=== PATIENT | male | born 1975 | race Caucasian/White ===

== ENCOUNTER 2016-09-09 13:29 | Emergency (ER) | payer OTHER ==
[2016-09-09 13:38] VITALS: BP 156/96
--- NOTE | 2016-09-09 13:54 | ER Document Report ---
ED Medical Screen (RME) - General Stated Complaint: WC/FALL/ELBOW PAIN Time seen by provider: 13:53 Mode of Arrival: Ambulatory Information source: Patient Notes: 41-year-old male slipped and fell while taking the trash out Thursday. Fell on his chest and left elbow. Tetanus is current. There is a small abrasion in the is able to extend fully pronation and supination but he wants it checked out because it still hurts. Physical Exam - Vital signs Vitals: Temp Pulse Resp BP Pulse Ox 98.2 F 81 18 156/96 H 96 09/09/16 13:37 09/09/16 13:37 09/09/16 13:37 09/09/16 13:37 09/09/16 13:37 Course - Vital Signs Vital signs: Temp Pulse Resp BP Pulse Ox 98.2 F 81 18 156/96 H 96 09/09/16 13:37 09/09/16 13:37 09/09/16 13:37 09/09/16 13:37 09/09/16 13:37
--- NOTE | 2016-09-09 14:53 | ER Document Report ---
ED Extremity Problem, Upper - General Chief Complaint: Elbow Injury Stated Complaint: WC/FALL/ELBOW PAIN Mode of Arrival: Ambulatory Notes: The patient is a 41-year-old male who presents after he slipped on ice at work 2 days ago and hit his left elbow. It is still swollen and sore. He also landed on his anterior chest wall, but he is not having any chest wall pain. He has not taken anything to help. Tetanus is up-to-date. Denies numbness, tingling, chest pain, shortness of breath, neck pain, LOC or headache. TRAVEL OUTSIDE OF THE [place] IN LAST 30 DAYS: No - Related Data Allergies/Adverse Reactions: No Known Allergies Allergy (Verified 09/09/16 13:53) Past Medical History - General Information source: Patient - Social History Smoking Status: Never Smoker Family History: Reviewed & Not Pertinent Patient has suicidal ideation: No Patient has homicidal ideation: No Review of Systems - Review of Systems Notes: REVIEW OF SYSTEMS: CONSTITUTIONAL: -fevers, -chills EENT: -eye pain, -difficulty swallowing, -nasal congestion CARDIOVASCULAR:-chest pain, -syncope. RESPIRATORY: -cough, -SOB GASTROINTESTINAL: -abdominal pain, - nausea, -vomiting, -diarrhea GENITOURINARY: -dysuria, -hematuria MUSCULOSKELETAL: -back pain, -neck pain, +left elbow pain SKIN: -rash or skin lesions. HEMATOLOGIC: -easy bruising or bleeding. LYMPHATIC: -swollen, enlarged glands. NEUROLOGICAL: -altered mental status or loss of consciousness, -headache, - neurologic symptoms PSYCHIATRIC: -anxiety, -depression. ALL OTHER SYSTEMS REVIEWED AND NEGATIVE. Physical Exam - Vital signs Vitals: Temp Pulse Resp BP Pulse Ox 98.2 F 81 18 156/96 H 96 09/09/16 13:37 09/09/16 13:37 09/09/16 13:37 09/09/16 13:37 09/09/16 13:37 - Notes Notes: PHYSICAL EXAMINATION: GENERAL: Well-appearing, well-nourished and in no acute distress. HEAD: Atraumatic, normocephalic. EYES: Pupils equal round and reactive to light, extraocular movements intact, sclera anicteric, conjunctiva are normal. ENT: nares patent, oropharynx clear without exudates. Moist mucous membranes. NECK: Normal range of motion, supple without lymphadenopathy LUNGS: Breath sounds clear to auscultation bilaterally and equal. No wheezes rales or rhonchi. HEART: Regular rate and rhythm without murmurs ABDOMEN: Soft, nontender, normoactive bowel sounds. No guarding, no rebound. No masses appreciated. EXTREMITIES: Normal range of motion, no pitting or edema. No cyanosis. Nontender elbow. NEUROLOGICAL: Cranial nerves grossly intact. Normal speech, normal gait. Normal sensory, motor, and reflex exams. PSYCH: Normal mood, normal affect. SKIN: Warm, Dry, normal turgor, no rashes or lesions noted. Small superficial abrasion over left elbow. Course - Re-evaluation Re-evalutation: No acute findings on elbow x-ray. Tetanus up-to-date. Instructed him to continue Motrin and bacitracin for his small abrasion. - Vital Signs Vital signs: Temp Pulse Resp BP Pulse Ox 98.2 F 81 18 156/96 H 96 09/09/16 13:37 09/09/16 13:37 09/09/16 13:37 09/09/16 13:37 09/09/16 13:37 - Diagnostic Test Radiology reviewed: Image reviewed, Reports reviewed Radiology results interpreted by me: Negative left elbow x-ray. Discharge - Discharge Clinical Impression: Abrasion Left elbow contusion Qualifiers: Encounter type: initial encounter Qualified Code(s): S50.02XA - Contusion of left elbow, initial encounter Condition: Good Disposition: HOME, SELF-CARE Additional Instructions: Contusion Your injury has resulted in a contusion -- a crushing of the deep tissues. No injury to important structures was detected during the physician's exam. Contusions vary in the amount of pain they cause, and in the length of time required for healing. Typically, the area will become bruised, and will remain painful to touch for two or three weeks. However, most patients are back to working and playing within a few days. After the initial period of rest and cold-packs, your symptoms (together with the doctor's recommendations) will determine how rapidly you can get back to full activity. Usually this means "do what feels okay, but don't do things that hurt." If re-examination was recommended, it's important to follow up as instructed. Call the doctor or return any time if pain increases, if swelling becomes severe, if you develop numbness or weakness in an injured extremity, or if any other alarming symptoms occur. Forms: Elevated Blood Pressure
== END 2016-09-09 15:05 | disposition home or self-care (01) ==
LOC: ER 13:29
DX: S50.02XA Contusion of left elbow, initial encounter (principal); W00.0XXA Fall on same level due to ice and snow, initial encounter; Y99.0 Civilian activity done for income or pay
CPT/HCPCS: 99283

== ENCOUNTER 2020-04-20 16:27 | Inpatient (IN) | payer OTHER ==
--- NOTE | 2020-04-20 17:08 | ER Document Report ---
ED General - General Chief Complaint: High Blood Sugar Stated Complaint: ABDOMINAL PAIN Time Seen by Provider: 04/20/20 16:48 Mode of Arrival: Medic Information source: Patient, Emergency Med Personnel Notes: Patient is a 45-year-old male presenting to the emergency department chief complaint of abdominal pain and vomiting. Patient states that he has been feeling poorly for a couple of days but the pain was worse today and vomited today. Patient comes in by EMS. In the process of starting an IV they checked his blood glucose level and it was found to be 500. At time of presentation gian gregory is also mildly hypertensive. Patient denies any travel history trauma history sick contacts or bad food exposure. Patient does state that food is tasted different lately TRAVEL OUTSIDE OF THE [place] IN LAST 30 DAYS: No - HPI Onset: Last week Onset/Duration: Gradual, Worse Quality of pain: Achy Severity: Mild Pain Level: 1 Associated symptoms: Nausea, Vomiting Exacerbated by: Denies Relieved by: Denies Similar symptoms previously: No Recently seen / treated by doctor: No - Related Data Allergies/Adverse Reactions: No Known Allergies Allergy (Verified 09/09/16 13:53) Past Medical History - General Information source: Patient - Social History Smoking Status: Former Smoker Chew tobacco use (# tins/day): No Smoking Education Provided: Yes Frequency of alcohol use: Social Drug Abuse: None Lives with: Family Family History: DM Patient has suicidal ideation: No Patient has homicidal ideation: No Review of Systems - Review of Systems Constitutional: No symptoms reported EENT: No symptoms reported Cardiovascular: No symptoms reported Respiratory: No symptoms reported Gastrointestinal: See HPI Genitourinary: No symptoms reported Male Genitourinary: No symptoms reported Musculoskeletal: No symptoms reported Skin: No symptoms reported Hematologic/Lymphatic: No symptoms reported Neurological/Psychological: No symptoms reported -: Yes All other systems reviewed and negative Physical Exam - Vital signs Vitals: Temp Pulse Resp BP Pulse Ox 97.7 F 101 H 18 163/98 H 98 04/20/20 17:00 04/20/20 17:00 04/20/20 17:00 04/20/20 17:00 04/20/20 17:00 - Notes Notes: PHYSICAL EXAMINATION: GENERAL: Patient is a morbidly obese 45-year-old male presenting to the emergency department chief complaint of abdominal pain and vomiting HEAD: Atraumatic, normocephalic. EYES: Pupils equal round and reactive to light, extraocular movements intact, sclera anicteric, conjunctiva are normal. ENT: nares patent, oropharynx clear without exudates. Moist mucous membranes. NECK: Normal range of motion, supple without lymphadenopathy, no appreciable JVD LUNGS: Lungs clear to auscultation bilaterally and equal. No wheezes rales or rhonchi. HEART: Regular rate and rhythm without murmurs ABDOMEN: Soft, morbidly obese, moderately tender to the right lower quadrant, normal bowel sounds. No guarding, no rebound. No masses appreciated. EXTREMITIES: Active full range of motion, no pitting or edema. No cyanosis. 2+ pulses x4 NEUROLOGICAL: No focal neurological deficits. Moves all extremities spontaneously and on command. SKIN: Warm, Dry, and intact. Normal turgor, no rashes or lesions noted. Course - Re-evaluation Re-evalutation: 04/20/20 19:49 Patient has been maintained on a security monitor the entire time in the emergency department. Patient has remained stable without decompensation. 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 There is no other significant family medical history. Patient has received 2 L IV normal saline by bolus and it is minimally move the patient's blood glucose level. Insulin drip has been started and patient has been consulted to the hospitalist for further evaluation and treatment. Patient is stable at this time. - Vital Signs Vital signs: Temp Pulse Resp BP Pulse Ox 97.7 F 101 H 19 147/100 H 97 04/20/20 17:00 04/20/20 17:00 04/20/20 19:40 04/20/20 19:40 04/20/20 19:40 - Laboratory Result Diagrams: 04/20/20 17:30 04/20/20 17:30 Laboratory results interpreted by me: 04/20/20 04/20/20 04/20/20 16:36 17:00 17:30 Carbon Dioxide 16 L Glucose 456 H* POC Glucose 499 H* Hemoglobin A1c % Alkaline Phosphatase 168 H Urine Protein 30 H Urine Glucose (UA) >=500 H Urine Ketones 80 H 04/20/20 17:30 Carbon Dioxide Glucose POC Glucose Hemoglobin A1c % 13.8 H Alkaline Phosphatase Urine Protein Urine Glucose (UA) Urine Ketones - Diagnostic Test Radiology reviewed: Reports reviewed Discharge - Discharge Clinical Impression: Hyperglycemia, Diabetes mellitus, new onset Condition: Fair Disposition: ADMITTED INPATIENT Admitting Provider: Lisa (Hospitalist) Unit Admitted: [facility]
--- NOTE | 2020-04-20 17:26 | RADIOLOGY REPORT (SQ) ---
EXAM DESCRIPTION: CHEST SINGLE VIEW IMAGES COMPLETED DATE/TIME: 04/20/2020 5:07 pm REASON FOR STUDY: sob COMPARISON: None. EXAM PARAMETERS: NUMBER OF VIEWS: One view. TECHNIQUE: Single frontal radiographic view of the chest acquired. RADIATION DOSE: NA LIMITATIONS: None. FINDINGS: LUNGS AND PLEURA: No opacities, masses or pneumothorax. No pleural effusion. MEDIASTINUM AND HILAR STRUCTURES: No masses. Contour normal. HEART AND VASCULAR STRUCTURES: Heart normal in size. Normal vasculature. BONES: No acute findings. HARDWARE: None in the chest. OTHER: No other significant finding. IMPRESSION: NO ACUTE RADIOGRAPHIC FINDING IN THE CHEST. TECHNICAL DOCUMENTATION: JOB ID: [id number] 2010 [employer]- All Rights Reserved Reading location - IP/workstation name: [email or web address]
[2020-04-20 17:35] LABS: APPEARANCE,URINE CLEAR; BILIRUBIN,URINE NEGATIVE (NEGATIVE); COLOR,URINE STRAW; GLUCOSE, URINE >=500 mg/dL (NEGATIVE); KETONES,URINE 80 mg/dL (NEGATIVE); LEUKOCYTE ESTERASE,URINE NEGATIVE (NEGATIVE); NITRITE,URINE NEGATIVE (NEGATIVE); PROTEIN,URINE 30 mg/dL (NEGATIVE); URINE SPECIFIC GRAVITY 1.033; UROBILINOGEN,URINE NEGATIVE mg/dL (<2.0)
[2020-04-20 17:38] LABS: ABSOLUTE BASOPHILS # (AUTO) 0.1 10^3/uL (0.0-0.2); ABSOLUTE EOSINOPHILS # (AUTO) 0.1 10^3/uL (0.0-0.6); ABSOLUTE MONOCYTES (AUTO) 0.5 10^3/uL (0.1-1.4); ABSOLUTE NEUT (AUTO) 5.4 10^3/uL (1.7-8.2); HEMATOCRIT 45.4 % (37.9-51.0); HEMOGLOBIN 15.2 g/dL (13.5-17.0); MEAN CORPUSCULAR HEMOGLOBIN 29.7 pg (27.0-33.4); MEAN CORPUSCULAR HGB CONC 33.5 g/dL (32.0-36.0); MEAN CORPUSCULAR VOLUME 88 fl (80-97); MONOCYTES % (AUTO) 6.5 % (3-13); PLATELET COUNT 177 10^3/uL (150-450); RED BLOOD COUNT 5.13 10^6/uL (4.35-5.55); SEGMENTED NEUTROPHILS % (AUTO) 66.5 % (42-78); TOTAL CELLS COUNTED % (AUTO) 100 %; WHITE BLOOD COUNT 8.2 10^3/uL (4.0-10.5)
[2020-04-20 17:55] LABS: INTERNATIONAL RATION (INR) 0.92; PROTHROMBIN TIME 12.6 SEC (11.4-15.4)
[2020-04-20 18:01] LABS: ALBUMIN 4.5 g/dL (3.5-5.0); ALKALINE PHOSPHATASE 168 U/L (38-126); ANION GAP 18 (5-19); ASPARTATE AMINO TRANSFERASE 34 U/L (17-59); BILIRUBIN,DIRECT 0.1 mg/dL (0.0-0.4); BILIRUBIN,TOTAL 0.6 mg/dL (0.2-1.3); BLOOD UREA NITROGEN 10 mg/dL (7-20); CALCIUM 9.2 mg/dL (8.4-10.2); CARBON DIOXIDE 16 mmol/L (22-30); CHLORIDE 104 mmol/L (98-107); POTASSIUM 4.7 mmol/L (3.6-5.0); TOTAL PROTEIN 7.9 g/dL (6.3-8.2)
[2020-04-20 18:13] LABS: GLUCOSE 456 mg/dL (75-110)
[2020-04-20 18:17] LABS: FREE T4 (FREE THYROXINE) 1.25 ng/dL (0.78-2.19)
[2020-04-20] MEDS ORDERED: NORMAL SALINE 100 ML with INSULIN REGULAR, HUMAN 100 UNIT IV PRN ×2 (18:22)
[2020-04-20] MEDS ORDERED: DEXTROSE 40% GEL 15 GM TUBE PO PRN ×2 (18:22)
[2020-04-20] MEDS ORDERED: DEXTROSE 50%-WATER 25 GM/50 ML DISP.SYRIN IV PRN ×2 (18:22)
[2020-04-20] MEDS ORDERED: GLUCAGON,HUMAN RECOMB 1 MG INJ IM PRN (18:22)
[2020-04-20 18:31] LABS: THYROID STIMULATING HORMONE 1.08 uIU/mL (0.47-4.68)
[2020-04-20] MEDS ORDERED: INSULIN REG, HUMAN 100 UNIT/ML 3 ML VIAL (PYX) ONE (19:34)
--- NOTE | 2020-04-20 19:36 | PDOC H&P ---
History of Present Illness Admission Date/PCP: 04/20/20 18:43 Patient complains of: abdominal pain, nausea and vomiting History of Present Illness: SHAHLA HUDDLESTON is a 45 year old male with a limited medical history. [facility] because [facility] to his right [facility]. He had a methicillin-resistant staph aureus infection on his left arm approximately 10 years ago. He was recently diagnosed with the possibility of glaucoma in his left eye and he is morbidly obese. There is a family history of diabetes. On April 07 he began to have a stomach ache and heartburn. This lasted for several days and on April 12 he began to have a funny taste in his mouth. Carbonated drinks felt like acid. Water had a metallic taste in food had a metallic taste as well. He tried multiple [id number] treatments without success. Subsequently his heartburn increased and then he began to have mahamed abdominal pain. He also noted frequent urination including nocturia. Increased thirst and sluggishness. Unfortunately he does not have a primary care provider nor does he go to the [facility] and so when it was felt to be significantly worse he in fact presented to the emergency department. On evaluation his CBC is normal but his serum chemistries are abnormal. He is sodium is 138 with a potassium of 4.7. Chloride is 104 and his bicarb is low at 16. Kidneys are normal at BUN 10 and creatinine of 0.69. Unfortunately his glucose was 456. Mr. Huddleston will be admitted to the hospitalist service. The patient will be placed on an insulin infusion. He will get aggressive IV fluids. Will check laboratory studies (basic metabolic panel) every 2 hours initially. Fingersticks will be every 1 hour initially and then decrease as his glucose gets closer to normal. Past Medical History Cardiac Medical History: Reports: None Pulmonary Medical History: Reports: None EENT Medical History: Reports: Other Neurological Medical History: Denies: Ischemic CVA, Seizures Endocrine Medical History: Reports: Diabetes Mellitus Type 2 - New diagnosis, Obesity Renal/ Medical History: Denies: Chronic Kidney Disease, Nephrolithiasis Malignancy Medical History: Reports: None GI Medical History: Reports: Gastroesophageal Reflux Disease Musculoskeltal Medical History: Reports: Arthritis - Right knee Skin Medical History: Denies: Eczema, Psoriasis Psychiatric Medical History: Reports: Tobacco Dependency Denies: Alcohol Dependency, Depression, Substance Abuse Traumatic Medical History: Reports: None Hematology: Denies: Anemia, Bleeding Tendencies Infectious Medical History: Reports: Methicillin-Resistant Staph Aureus Past Surgical History Past Surgical History: Reports: None Social History Information Source: Patient Lives with: Family Smoking Status: Former Smoker Electronic Cigarette use?: Yes Frequency of Alcohol Use: Social Hx Recreational Drug Use: No Hx Prescription Drug Abuse: No - Advance Directive Resuscitation Status: Full Code Surrogate healthcare decision maker:: His parents would be the emergency contact/decision makers Family History Family History: DM, Hypertension Parental Family History Reviewed: Yes Children Family History Reviewed: NA Sibling(s) Family History Reviewed.: Yes Medication/Allergy Allergies/Adverse Reactions: No Known Allergies Allergy (Verified 09/09/16 13:53) Review of Systems All systems: reviewed and no additional remarkable complaints except as stated Eyes: PRESENT: other - Possible glaucoma left eye. Gastrointestinal: PRESENT: abdominal pain, constipation, heartburn, nausea, vomiting Genitourinary: PRESENT: nocturia, other - Urinary frequency Musculoskeletal: PRESENT: other - Right knee pain Physical Exam Vital Signs: Temp Pulse Resp BP Pulse Ox 97.7 F 101 H 19 161/95 H 96 04/20/20 17:00 04/20/20 17:00 04/20/20 18:06 04/20/20 18:06 04/20/20 18:06 Intake & Output 04/19/20 04/20/20 04/21/20 06:59 06:59 06:59 Weight 144.4 kg General appearance: PRESENT: no acute distress, cooperative, morbidly obese, well-developed, well-nourished Head exam: PRESENT: atraumatic, normocephalic Eye exam: PRESENT: conjunctiva pink, EOMI, PERRLA. ABSENT: scleral icterus Ear exam: PRESENT: normal external ear exam. ABSENT: drainage Mouth exam: PRESENT: dry mucosa, neck supple, tongue midline Teeth exam: ABSENT: poor dentation Neck exam: PRESENT: full ROM. ABSENT: carotid bruit, JVD, lymphadenopathy, tenderness, thyromegaly, tracheostomy Respiratory exam: PRESENT: clear to auscultation paulette, symmetrical, unlabored. ABSENT: accessory muscle use, prolonged expiratory phas, rales, rhonchi, tachypnea, wheezes Cardiovascular exam: PRESENT: RRR, +S1, +S2. ABSENT: bradycardia, diastolic murmur, irregular rhythm, systolic murmur, tachycardia Pulses: PRESENT: normal radial pulses, normal dorsalis pedis pul GI/Abdominal exam: PRESENT: soft, tenderness - Diffusely. Involving upper and lower abdomen. ABSENT: guarding Rectal exam: PRESENT: deferred Gentrourinary exam: ABSENT: indwelling catheter Extremities exam: PRESENT: full ROM. ABSENT: pedal edema Musculoskeletal exam: PRESENT: ambulatory, full ROM, normal inspection. ABSENT: deformity, dislocation Neurological exam: PRESENT: alert, awake, oriented to person, oriented to place, oriented to time, oriented to situation, CN II-XII grossly intact. ABSENT: altered, motor sensory deficit, aphasic Psychiatric exam: PRESENT: appropriate affect - Affect reflects his current illness. ABSENT: agitated, anxious Focused psych exam: ABSENT: delusional, paranoid, restlessness Skin exam: PRESENT: dry, normal color, warm. ABSENT: erythema, rash Results Laboratory Results: 04/20/20 17:30 04/20/20 17:30 04/20/20 04/20/20 04/20/20 17:00 17:30 17:30 WBC 8.2 RBC 5.13 Hgb 15.2 Hct 45.4 MCV 88 MCH 29.7 MCHC 33.5 RDW 14.0 Plt Count 177 Seg Neutrophils % 66.5 Sodium 138.0 Potassium 4.7 Chloride 104 Carbon Dioxide 16 L Anion Gap 18 BUN 10 Creatinine 0.69 Est GFR ( Amer) > 60 Glucose 456 H* Calcium 9.2 Total Bilirubin 0.6 AST 34 Alkaline Phosphatase 168 H Total Protein 7.9 Albumin 4.5 Lipase 159.5 TSH Free T4 Urine Color STRAW Urine Appearance CLEAR Urine pH 5.0 Ur Specific [place] 1.033 Urine Protein 30 H Urine Glucose (UA) >=500 H Urine Ketones 80 H Urine Blood NEGATIVE Urine Nitrite NEGATIVE Ur Leukocyte Esterase NEGATIVE Urine WBC (Auto) 1 Urine RBC (Auto) 1 04/20/20 17:30 WBC RBC Hgb Hct MCV MCH MCHC RDW Plt Count Seg Neutrophils % Sodium Potassium Chloride Carbon Dioxide Anion Gap BUN Creatinine Est GFR ( Amer) Glucose Calcium Total Bilirubin AST Alkaline Phosphatase Total Protein Albumin Lipase TSH 1.08 Free T4 1.25 Urine Color Urine Appearance Urine pH Ur Specific [place] Urine Protein Urine Glucose (UA) Urine Ketones Urine Blood Urine Nitrite Ur Leukocyte Esterase Urine WBC (Auto) Urine RBC (Auto) Impressions: Chest X-Ray 04/20/20 16:46 IMPRESSION: NO ACUTE RADIOGRAPHIC FINDING IN THE CHEST. Assessment and Plan - Diagnosis (1) Diabetic ketoacidosis Qualifiers: Diabetes mellitus type: type 2 Diabetes mellitus complication detail: without coma Qualified Code(s): E11.10 - Type 2 diabetes mellitus with ketoacidosis without coma Is this a current diagnosis for this admission?: Yes Plan: New diagnosis of diabetes mellitus. The patient presents with hyperglycemia and a low serum bicarbonate level. He will be placed on insulin infusion. He will get serial laboratory studies. Accu-Cheks will be every 1 hour initially and then slowly decreased. As this is most likely a type 2 diabetes diagnosis (C- peptide is pending) and going to start the patient on oral medications as well as an insulin sliding scale. We [facility] the [facility] He already is seeing an loader machine for his left eye with a possible diagnosis of glaucoma. (2) Hyperglycemia due to type 2 diabetes mellitus Qualifiers: Diabetes mellitus prison insulin use: without prison use Qualified Code(s): E11.65 - Type 2 diabetes mellitus with hyperglycemia Is this a current diagnosis for this admission?: Yes Plan: This is the first presentation for the patient. He was not diagnosed with diabetes before. There is a family history. We are starting treatment with an insulin infusion and will gradually change to oral medications and possibly initiate insulin therapy. The patient will be on an JERRY inhibitor (for hypertension) and we will likely start the patient on statin therapy regardless of his cholesterol levels. (3) Abdominal pain Qualifiers: Abdominal location: generalized Qualified Code(s): R10.84 - Generalized abdominal pain Is this a current diagnosis for this admission?: Yes Plan: The patient presents with diffuse abdominal pain. The pain is present both in the lower and upper abdomen. Will have analgesic medication available if needed. His constipation could also be contributing. The upper abdomen could be a gastritis. (4) Acid reflux disease Qualifiers: Esophagitis presence: esophagitis presence not specified Qualified Code(s): K21.9 - Gastro-esophageal reflux disease without esophagitis Is this a current diagnosis for this admission?: Yes Plan: The patient has been complaining of heartburn even to the point where he has an acid taste in the back of his mouth. We will start the patient on pantoprazole 40 mg twice daily. Will monitor for improvement. Antacids are available. (5) Nausea and vomiting Qualifiers: Vomiting type: unspecified Vomiting Intractability: non-intractable Qualified Code(s): R11.2 - Nausea with vomiting, unspecified Is this a current diagnosis for this admission?: Yes Plan: Secondary to his diabetic ketoacidosis. Antiemetics are available if needed (6) Hypertension Qualifiers: Hypertension type: essential hypertension Qualified Code(s): I10 - Essential (primary) hypertension Is this a current diagnosis for this admission?: Yes Plan: The patient has never been on antihypertensive medications. He is slightly tachycardic in the emergency department. I am going to start lisinopril 5 mg daily and a 5 mg dose this evening. I am also starting metoprolol succinate 25 mg daily. I have ordered 12.5 mg of metoprolol tartrate for this evening. (7) Constipation Qualifiers: Constipation type: unspecified constipation type Qualified Code(s): K59.00 - Constipation, unspecified Is this a current diagnosis for this admission?: Yes Plan: He has not had a bowel movement in 3 to 4 days. I have started Colace twice a day, MiraLAX daily and he will have bisacodyl available if needed. (8) Glaucoma Qualifiers: Glaucoma type: unspecified Laterality: left Qualified Code(s): H40.9 - Unspecified glaucoma Is this a current diagnosis for this admission?: Yes Plan: He has been working with ophthalmology. We will continue his latanoprost 1 drop in the left eye at bedtime. (9) Morbid obesity with BMI of 40.0-44.9, adult Is this a current diagnosis for this admission?: Yes Plan: Puts him at risk not only for diabetes but for hypertension and coronary artery disease. Weight loss will benefit him on many levels. The dietitian will be seeing the patient. (10) Engages in nicotine containing substance vaping Is this a current diagnosis for this admission?: Yes Plan: Will encourage cessation. Can provide a nicotine patch if needed. - Time Time Spent with patient: 35 or more minutes Medications reviewed and adjusted accordingly: Yes Anticipated Discharge Disposition: Home, Self Care Anticipated Discharge Timeframe: within 72 hours - Inpatient Certification Based on my medical assessment, after consideration of the patient's comorbidities, presenting symptoms, or acuity I expect that the services needed warrant INPATIENT care.: Yes I certify that my determination is in accordance with my understanding of Medicare's requirements for reasonable and necessary INPATIENT services [42 CFR 412.3e].: Yes Medical Necessity: Significant Comorbidiites Make Outpatient Treatment Too Risky, Need Close Monitoring Due to Risk of Patient Decompensation, Need For IV Fluids, Need For Continuous Telemetry Monitoring, Need for Pain Control, Risk of Complication if Not Cared For in Hospital, Other - Insulin infusion and frequent blood tests Post Hospital Care: D/C Record Changer Tester Documentation, D/C or Transfer Summary
[2020-04-20] MEDS ORDERED: PROMETHAZINE HCL INJ 25 MG/1 ML VIAL IV PRN (20:05)
[2020-04-20] MEDS ORDERED: MAGNESIUM HYDROXIDE SUSP 30 ML UDCUP PO PRN (20:05)
[2020-04-20] MEDS ORDERED: ACETAMINOPHEN 325 MG TABLET PO PRN (20:05)
[2020-04-20] MEDS ORDERED: MAG HYDROX/AL HYDROX/SIMETH SUSP 30 ML UDCUP PO PRN (20:05)
[2020-04-20] MEDS ORDERED: BISACODYL 5 MG TABEC PO ONE (20:13)
[2020-04-20] MEDS ORDERED: LISINOPRIL 5 MG TABLET PO ONE (20:19)
[2020-04-20] MEDS ORDERED: METOPROLOL TARTRATE 25 MG TABLET PO ONE (20:20)
[2020-04-20] MEDS ORDERED: TRAZODONE HCL 50 MG TABLET PO PRN (20:21)
[2020-04-20] MEDS ORDERED: KETOROLAC TROMETHAMINE INJ/PF 30 MG/1 ML SDV IV PRN (20:45)
[2020-04-20] MEDS: HEPARIN SOD (PORCINE) 5,000 UNIT/ML 1 ML VIAL SUBCUT SCH (21:25)
[2020-04-20] MEDS: SODIUM BICARBONATE 650 MG TABLET PO SCH (21:26)
[2020-04-20] MEDS: LATANOPROST 0.005% OPH SOLN 2.5 ML OS SCH (21:27)
[2020-04-20] MEDS: NORMAL SALINE 1000 ML 1,000 ML IV PRN (21:39)
[2020-04-20 22:21] LABS: ANION GAP 18 (5-19); BLOOD UREA NITROGEN 10 mg/dL (7-20); CALCIUM 9.2 mg/dL (8.4-10.2); CARBON DIOXIDE 16 mmol/L (22-30); CHLORIDE 106 mmol/L (98-107); GLUCOSE 326 mg/dL (75-110); POTASSIUM 4.7 mmol/L (3.6-5.0)
--- NOTE | 2020-04-21 00:17 | RADIOLOGY REPORT (SQ) ---
EXAM DESCRIPTION: XR CHEST 1 VIEW COMPLETED DATE/TME: 04/20/2020 00:00 CLINICAL HISTORY: 45 years Male c/o follower left chest pain after fall COMPARISON: Chest x-ray 5:12 PM today's date NUMBER OF VIEWS: 1 TECHNIQUE: Portable chest LIMITATIONS: None. FINDINGS: Heart size is normal. Lungs are clear. No pneumothorax. Stable mild elevation right hemidiaphragm IMPRESSION: No acute cardiopulmonary process copyright 2010 [employer]- All Rights Reserved
[2020-04-21 02:39] LABS: ANION GAP 16 (5-19); BLOOD UREA NITROGEN 12 mg/dL (7-20); CALCIUM 8.8 mg/dL (8.4-10.2); CARBON DIOXIDE 18 mmol/L (22-30); CHLORIDE 108 mmol/L (98-107); GLUCOSE 265 mg/dL (75-110)
[2020-04-21] MEDS: PANTOPRAZOLE SODIUM 40 MG TABLET.DR PO SCH ×2 (05:12→16:18)
[2020-04-21] MEDS: HEPARIN SOD (PORCINE) 5,000 UNIT/ML 1 ML VIAL SUBCUT SCH ×3 (05:12→22:30)
[2020-04-21] MEDS ORDERED: INSULIN REG, HUMAN 100 UNIT/ML 3 ML VIAL (PYX) ONE ×2 (05:18→05:24)
[2020-04-21] MEDS: NORMAL SALINE 1000 ML 1,000 ML IV PRN (05:42)
[2020-04-21] MEDS: DEXTROSE 5%-NORMAL SALINE 1,000 ML IV PRN ×2 (06:47→12:20)
[2020-04-21 07:20] LABS: ANION GAP 14 (5-19); BLOOD UREA NITROGEN 13 mg/dL (7-20); CALCIUM 8.6 mg/dL (8.4-10.2); CARBON DIOXIDE 19 mmol/L (22-30); CHLORIDE 110 mmol/L (98-107); CHOLESTEROL 287.88 mg/dL (0-200); GLUCOSE 139 mg/dL (75-110); POTASSIUM 3.7 mmol/L (3.6-5.0)
[2020-04-21 07:54] LABS: DIRECT LDL 153 mg/dL (<100)
[2020-04-21 07:56] LABS: TRIGLYCERIDES 664 mg/dL (<150)
[2020-04-21] MEDS: SODIUM BICARBONATE 650 MG TABLET PO SCH ×2 (10:08→22:31)
[2020-04-21] MEDS: LISINOPRIL 5 MG TABLET PO SCH (10:08)
[2020-04-21] MEDS: DOCUSATE SODIUM 100 MG CAPSULE PO SCH ×2 (10:08→18:49)
[2020-04-21] MEDS: POLYETHYLENE GLYCOL 3350 POWDER 17 GM/1 PACKET PO SCH (10:08)
[2020-04-21] MEDS: METOPROLOL SUCCINATE 25 MG TAB.SR.24H PO SCH (10:09)
[2020-04-21] MEDS ORDERED: METFORMIN HCL 500 MG TABLET PO ONE ×2 (13:20→17:00)
[2020-04-21] MEDS ORDERED: INSULIN GLARGINE,HUM.REC.ANLOG 1,000 UNIT/10 ML VIAL SUBCUT SCH (13:30)
--- NOTE | 2020-04-21 13:30 | PDOC PROGRESS REPORT ---
Subjective Progress Note for:: 04/21/20 Subjective:: Feeling better. Still with a metallic taste in his mouth. He feels a little woozy but this is likely from the significant glucose shift. Reason For Visit: DIABETIC KETOACIDOSIS IN NEW DIABETIC,HYPERTENSION Physical Exam Vital Signs: Temp Pulse Resp BP Pulse Ox 98.0 F 88 14 132/88 H 94 04/21/20 10:50 04/21/20 10:50 04/21/20 10:50 04/21/20 10:50 04/21/20 10:50 Intake & Output 04/20/20 04/21/20 04/22/20 06:59 06:59 06:59 Intake Total 1052 971 Output Total 1100 Balance -48 971 Weight 125.1 kg General appearance: PRESENT: no acute distress, cooperative, well-developed Head exam: PRESENT: atraumatic, normocephalic Eye exam: PRESENT: conjunctiva pink. ABSENT: scleral icterus Ear exam: PRESENT: normal external ear exam. ABSENT: bleeding, drainage Mouth exam: PRESENT: dry mucosa, tongue midline Respiratory exam: PRESENT: clear to auscultation paulette, symmetrical, unlabored. ABSENT: rales, rhonchi, tachypnea, wheezes Cardiovascular exam: PRESENT: RRR, +S1, +S2 GI/Abdominal exam: PRESENT: normal bowel sounds, soft, other - Protuberant abdomen. ABSENT: guarding, tenderness Rectal exam: PRESENT: deferred Gentrourinary exam: ABSENT: indwelling catheter Extremities exam: ABSENT: pedal edema Musculoskeletal exam: PRESENT: ambulatory, full ROM, normal inspection. ABSENT: deformity, dislocation Neurological exam: PRESENT: alert, awake, oriented to person, oriented to place, oriented to time, oriented to situation, CN II-XII grossly intact. ABSENT: altered, motor sensory deficit Psychiatric exam: PRESENT: appropriate affect. ABSENT: agitated, anxious Focused psych exam: ABSENT: delusional, paranoid, restlessness Skin exam: PRESENT: dry, normal color, warm. ABSENT: rash Results Laboratory Results: 04/20/20 17:30 04/21/20 06:55 04/20/20 04/20/20 04/20/20 17:00 17:30 17:30 WBC 8.2 RBC 5.13 Hgb 15.2 Hct 45.4 MCV 88 MCH 29.7 MCHC 33.5 RDW 14.0 Plt Count 177 Seg Neutrophils % 66.5 Sodium 138.0 Potassium 4.7 Chloride 104 Carbon Dioxide 16 L Anion Gap 18 BUN 10 Creatinine 0.69 Est GFR ( Amer) > 60 Glucose 456 H* Calcium 9.2 Magnesium Total Bilirubin 0.6 AST 34 Alkaline Phosphatase 168 H Total Protein 7.9 Albumin 4.5 Triglycerides Cholesterol LDL Cholesterol Direct HDL Cholesterol Lipase 159.5 TSH Free T4 Urine Color STRAW Urine Appearance CLEAR Urine pH 5.0 Ur Specific [place] 1.033 Urine Protein 30 H Urine Glucose (UA) >=500 H Urine Ketones 80 H Urine Blood NEGATIVE Urine Nitrite NEGATIVE Ur Leukocyte Esterase NEGATIVE Urine WBC (Auto) 1 Urine RBC (Auto) 1 04/20/20 04/20/20 04/21/20 17:30 21:56 02:00 WBC RBC Hgb Hct MCV MCH MCHC RDW Plt Count Seg Neutrophils % Sodium 140.4 142.0 Potassium 4.7 4.0 Chloride 106 108 H Carbon Dioxide 16 L 18 L Anion Gap 18 16 BUN 10 12 Creatinine 0.76 0.85 Est GFR ( Amer) > 60 > 60 Glucose 326 H 265 H Calcium 9.2 8.8 Magnesium Total Bilirubin AST Alkaline Phosphatase Total Protein Albumin Triglycerides Cholesterol LDL Cholesterol Direct HDL Cholesterol Lipase TSH 1.08 Free T4 1.25 Urine Color Urine Appearance Urine pH Ur Specific [place] Urine Protein Urine Glucose (UA) Urine Ketones Urine Blood Urine Nitrite Ur Leukocyte Esterase Urine WBC (Auto) Urine RBC (Auto) 04/21/20 06:55 WBC RBC Hgb Hct MCV MCH MCHC RDW Plt Count Seg Neutrophils % Sodium 142.5 Potassium 3.7 Chloride 110 H Carbon Dioxide 19 L Anion Gap 14 BUN 13 Creatinine 0.75 Est GFR ( Amer) > 60 Glucose 139 H Calcium 8.6 Magnesium 2.2 Total Bilirubin AST Alkaline Phosphatase Total Protein Albumin Triglycerides 664 H Cholesterol 287.88 H LDL Cholesterol Direct 153 H HDL Cholesterol 34 L Lipase TSH Free T4 Urine Color Urine Appearance Urine pH Ur Specific [place] Urine Protein Urine Glucose (UA) Urine Ketones Urine Blood Urine Nitrite Ur Leukocyte Esterase Urine WBC (Auto) Urine RBC (Auto) Impressions: Chest X-Ray 04/20/20 16:46 IMPRESSION: NO ACUTE RADIOGRAPHIC FINDING IN THE CHEST. Assessment and Plan - Diagnosis (1) Diabetic ketoacidosis Qualifiers: Diabetes mellitus type: type 2 Diabetes mellitus complication detail: without coma Qualified Code(s): E11.10 - Type 2 diabetes mellitus with ketoacidosis without coma Is this a current diagnosis for this admission?: Yes Plan: Patient sugars came down nicely. Them have come down a little too much. I am going to stop the insulin drip. I am going to start the patient on some long- acting insulin and try and transition him to oral medications if possible. He needs to establish with primary care. He is a disabled . I will order diabetic teaching as well. (2) Hyperglycemia due to type 2 diabetes mellitus Qualifiers: Diabetes mellitus correction insulin use: without terminal worker use Qualified Code(s): E11.65 - Type 2 diabetes mellitus with hyperglycemia Is this a current diagnosis for this admission?: Yes Plan: On the insulin drip the glucose was less than 200 since 5:00 this morning. We will stop the infusion. I am going to start him on NPH as this would be much more affordable if he continues on insulin. I also introduced metformin and glimepiride. Until he establishes insurance coverage I will try and use the most reasonably priced medications if possible (3) Abdominal pain Qualifiers: Abdominal location: generalized Qualified Code(s): R10.84 - Generalized abdominal pain Is this a current diagnosis for this admission?: Yes Plan: Unsure of the etiology of the abdominal pain. The patient may have fatty liver change. The pain is much better today. Consider ultrasound as an outpatient. (4) Acid reflux disease Qualifiers: Esophagitis presence: esophagitis presence not specified Qualified Code(s): K21.9 - Gastro-esophageal reflux disease without esophagitis Is this a current diagnosis for this admission?: Yes Plan: Continue Protonix 40 mg twice daily (5) Nausea and vomiting Qualifiers: Vomiting type: unspecified Vomiting Intractability: non-intractable Qualified Code(s): R11.2 - Nausea with vomiting, unspecified Is this a current diagnosis for this admission?: Yes Plan: Significantly improved. Appetite is still poor as the food still has a metallic taste. (6) Hypertension Qualifiers: Hypertension type: essential hypertension Qualified Code(s): I10 - Essen tial (primary) hypertension Is this a current diagnosis for this admission?: Yes Plan: Good blood pressure control on 5 mg of lisinopril and 12.5 mg of metoprolol succinate (7) Constipation Qualifiers: Constipation type: unspecified constipation type Qualified Code(s): K59.00 - Constipation, unspecified Is this a current diagnosis for this admission?: Yes Plan: No bowel movement yet. Will administer 1 bottle of magnesium citrate. (8) Glaucoma Qualifiers: Glaucoma type: unspecified Laterality: left Qualified Code(s): H40.9 - Unspecified glaucoma Is this a current diagnosis for this admission?: Yes Plan: Continue latanoprost (9) Morbid obesity with BMI of 40.0-44.9, adult Is this a current diagnosis for this admission?: Yes Plan: Tight control of his diabetes will significantly help with weight loss. (10) Engages in nicotine containing substance vaping Is this a current diagnosis for this admission?: Yes Plan: Continue to strongly suggest abstaining from vape due to the potential for serious lung damage. (11) Hyperlipidemia, mixed Is this a current diagnosis for this admission?: Yes Plan: Triglycerides were over 600 and total cholesterol was 248. LDL was 150. 40 mg atorvastatin started initially. Good control of his diabetes will also help hypertriglyceridemia. - Time Time Spent with patient: 15-24 minutes Medications reviewed and adjusted accordingly: Yes Anticipated Discharge Disposition: Home, Self Care Anticipated Discharge Timeframe: 3-4 days
[2020-04-21] MEDS ORDERED: INSULIN GLARGINE,HUM.REC.ANLOG 1,000 UNIT/10 ML VIAL (PYX) SUBCUT ONE ×4 (14:00→22:25)
[2020-04-21] MEDS: INSULIN NPH (ISOPHANE), HUMAN 100 UNIT/ML 3 ML SUBCUT SCH (16:18)
[2020-04-21] MEDS ORDERED: MAGNESIUM CITRATE 296 ML BOTTLE PO ONE (18:00)
[2020-04-21] MEDS: INSULIN LISPRO 100 UNIT/ML 3 ML VIAL SUBCUT SCH ×2 (18:49→22:29)
[2020-04-21] MEDS ORDERED: INSULIN GLARGINE,HUM.REC.ANLOG 1,000 UNIT/10 ML VIAL (PYX) SUBCUT PRN (19:40)
[2020-04-21] MEDS: ATORVASTATIN CALCIUM 40 MG TABLET PO SCH (22:31)
[2020-04-21] MEDS: LATANOPROST 0.005% OPH SOLN 2.5 ML OS SCH (22:32)
[2020-04-22 04:26] LABS: ABSOLUTE BASOPHILS # (AUTO) 0.1 10^3/uL (0.0-0.2); ABSOLUTE EOSINOPHILS # (AUTO) 0.2 10^3/uL (0.0-0.6); ABSOLUTE LYMPHOCYTES (AUTO) 3.3 10^3/uL (0.5-4.7); ABSOLUTE MONOCYTES (AUTO) 0.5 10^3/uL (0.1-1.4); ABSOLUTE NEUT (AUTO) 3.7 10^3/uL (1.7-8.2); BASOPHILS % (AUTO) 1.2 % (0-2); EOSINOPHILS % (AUTO) 2.4 % (0-6); HEMATOCRIT 41.3 % (37.9-51.0); HEMOGLOBIN 13.7 g/dL (13.5-17.0); LYMPHOCYTES % (AUTO) 42.9 % (13-45); MEAN CORPUSCULAR HEMOGLOBIN 29.8 pg (27.0-33.4); MEAN CORPUSCULAR HGB CONC 33.3 g/dL (32.0-36.0); MEAN CORPUSCULAR VOLUME 90 fl (80-97); MONOCYTES % (AUTO) 6.5 % (3-13); PLATELET COUNT 180 10^3/uL (150-450); RED BLOOD COUNT 4.61 10^6/uL (4.35-5.55); RED CELL DISTRIBUTION WIDTH 14.3 % (11.5-14.0); TOTAL CELLS COUNTED % (AUTO) 100 %; WHITE BLOOD COUNT 7.8 10^3/uL (4.0-10.5)
[2020-04-22 04:44] LABS: ANION GAP 12 (5-19); BLOOD UREA NITROGEN 11 mg/dL (7-20); CALCIUM 8.5 mg/dL (8.4-10.2); CARBON DIOXIDE 20 mmol/L (22-30); CHLORIDE 107 mmol/L (98-107); GLUCOSE 251 mg/dL (75-110); POTASSIUM 4.3 mmol/L (3.6-5.0)
[2020-04-22] MEDS: HEPARIN SOD (PORCINE) 5,000 UNIT/ML 1 ML VIAL SUBCUT SCH ×3 (06:00→21:52)
[2020-04-22] MEDS: PANTOPRAZOLE SODIUM 40 MG TABLET.DR PO SCH (06:02)
[2020-04-22] MEDS: DOCUSATE SODIUM 100 MG CAPSULE PO SCH ×2 (09:30→17:33)
[2020-04-22] MEDS: SODIUM BICARBONATE 650 MG TABLET PO SCH (09:30)
[2020-04-22] MEDS: LISINOPRIL 5 MG TABLET PO SCH (09:30)
[2020-04-22] MEDS: METOPROLOL SUCCINATE 25 MG TAB.SR.24H PO SCH (09:30)
[2020-04-22] MEDS: GLIMEPIRIDE 1 MG TABLET PO SCH (09:30)
[2020-04-22] MEDS: POLYETHYLENE GLYCOL 3350 POWDER 17 GM/1 PACKET PO SCH (09:30)
[2020-04-22] MEDS: INSULIN NPH (ISOPHANE), HUMAN 100 UNIT/ML 3 ML SUBCUT SCH ×2 (09:32→17:34)
[2020-04-22] MEDS: INSULIN LISPRO 100 UNIT/ML 3 ML VIAL SUBCUT SCH ×4 (09:33→21:52)
--- NOTE | 2020-04-22 13:57 | PDOC PROGRESS REPORT ---
Subjective Progress Note for:: 04/22/20 Subjective:: The patient has been having orthostatic symptoms. He actually fell 2 nights ago. His sugars are in the low 200s and he is starting to lose the metallic taste when he eats. He states that he feels lightheaded at times. Getting up from the toilet was one episode. This certainly could have been a post micturition/bowel movement near syncopal episode. Reason For Visit: DIABETIC KETOACIDOSIS IN NEW DIABETIC,HYPERTENSION Physical Exam Vital Signs: Temp Pulse Resp BP Pulse Ox 98.2 F 79 20 132/82 H 96 04/22/20 11:44 04/22/20 11:44 04/22/20 11:44 04/22/20 11:44 04/22/20 11:44 Intake & Output 04/21/20 04/22/20 04/23/20 06:59 06:59 06:59 Intake Total 1052 4510 Output Total 1100 475 Balance -48 4035 Weight 125.1 kg General appearance: PRESENT: no acute distress, cooperative, well-developed, well-nourished Head exam: PRESENT: atraumatic, normocephalic Eye exam: PRESENT: conjunctiva pink. ABSENT: scleral icterus Ear exam: PRESENT: normal external ear exam. ABSENT: bleeding, drainage Mouth exam: PRESENT: moist, tongue midline Respiratory exam: PRESENT: clear to auscultation paulette, symmetrical, unlabored. ABSENT: rales, rhonchi, tachypnea, wheezes Cardiovascular exam: PRESENT: RRR, +S1, +S2. ABSENT: bradycardia, diastolic murmur, irregular rhythm, systolic murmur, tachycardia GI/Abdominal exam: PRESENT: normal bowel sounds, soft, other - Protuberant abdomen. ABSENT: tenderness Rectal exam: PRESENT: deferred Gentrourinary exam: ABSENT: indwelling catheter Extremities exam: ABSENT: pedal edema Musculoskeletal exam: PRESENT: ambulatory, normal inspection. ABSENT: deformity, dislocation Neurological exam: PRESENT: alert, awake, oriented to person, oriented to place, oriented to time, oriented to situation, CN II-XII grossly intact. ABSENT: altered, motor sensory deficit Psychiatric exam: PRESENT: appropriate affect. ABSENT: agitated, anxious Focused psych exam: ABSENT: delusional, paranoid, restlessness Skin exam: PRESENT: dry, normal color, warm. ABSENT: rash Results Laboratory Results: 04/22/20 04:12 04/22/20 04:12 04/22/20 04/22/20 04:12 04:12 WBC 7.8 RBC 4.61 Hgb 13.7 Hct 41.3 MCV 90 MCH 29.8 MCHC 33.3 RDW 14.3 H Plt Count 180 Seg Neutrophils % 47.0 Sodium 139.0 Potassium 4.3 Chloride 107 Carbon Dioxide 20 L Anion Gap 12 BUN 11 Creatinine 0.70 Est GFR ( Amer) > 60 Glucose 251 H Calcium 8.5 Magnesium 2.3 Impressions: Chest X-Ray 04/20/20 16:46 IMPRESSION: NO ACUTE RADIOGRAPHIC FINDING IN THE CHEST. Assessment and Plan - Diagnosis (1) Diabetic ketoacidosis Qualifiers: Diabetes mellitus type: type 2 Diabetes mellitus complication detail: without coma Qualified Code(s): E11.10 - Type 2 diabetes mellitus with ketoacidosis without coma Is this a current diagnosis for this admission?: Yes Plan: Sugars are improving. This morning his glucose was 251. His bicarb was 20. We will continue to monitor. He may need a few more doses of sodium bicarbonate. (2) Hyperglycemia due to type 2 diabetes mellitus Qualifiers: Diabetes mellitus local intermodal truck driver insulin use: without local intermodal truck driver use Qualified Code(s): E11.65 - Type 2 diabetes mellitus with hyperglycemia Is this a current diagnosis for this admission?: Yes Plan: I am trying to convert him to oral medications. I have added Januvia to his metformin. If he tolerates this I will likely increase to metformin and Januvia twice a day. I will discuss the possible side effects including pancreatitis. Because of his hypertriglyceridemia I may switch to a sulfonylurea. (3) Abdominal pain Qualifiers: Abdominal location: generalized Qualified Code(s): R10.84 - Generalized abdominal pain Is this a current diagnosis for this admission?: Yes Plan: Negligible today. (4) Acid reflux disease Qualifiers: Esophagitis presence: esophagitis presence not specified Qualified Code(s): K21.9 - Gastro-esophageal reflux disease without esophagitis Is this a current diagnosis for this admission?: Yes Plan: Continue Protonix 40 mg daily. (5) Nausea and vomiting Qualifiers: Vomiting type: unspecified Vomiting Intractability: non-intractable Qualified Code(s): R11.2 - Nausea with vomiting, unspecified Is this a current diagnosis for this admission?: Yes Plan: Much improved with reduction in glucose. Continue to manage diabetic regimen. (6) Hypertension Qualifiers: Hypertension type: essential hypertension Qualified Code(s): I10 - Essential (primary) hypertension Is this a current diagnosis for this admission?: Yes Plan: Currently well controlled. Will monitor with serial vital signs and adjust medications accordingly. (7) Constipation Qualifiers: Constipation type: unspecified constipation type Qualified Code(s): K59.00 - Constipation, unspecified Is this a current diagnosis for this admission?: Yes Plan: May have resolved. He is having some loose stool but I did explain that fluids can move around a large fecal load. We will continue stool softeners. (8) Glaucoma Qualifiers: Glaucoma type: unspecified Laterality: left Qualified Code(s): H40.9 - Unspecified glaucoma Is this a current diagnosis for this admission?: Yes Plan: Continue latanoprost to the left eye (9) Morbid obesity with BMI of 40.0-44.9, adult Is this a current diagnosis for this admission?: Yes Plan: Getting control of his diabetes will help but he still needs aggressive dietary management and exercise. (10) Engages in nicotine containing substance vaping Is this a current diagnosis for this admission?: Yes Plan: Continue to strongly encouraged to stop vaping (11) Hyperlipidemia, mixed Is this a current diagnosis for this admission?: Yes Plan: Triglycerides were 664 with a total cholesterol of 287 and an LDL of 153. Will start atorvastatin 40 mg daily. Better control of his diabetes will help reduce his triglycerides. He still may need a fenofibrate. (12) Near syncope Is this a current diagnosis for this admission?: Yes Plan: We will check orthostatic vital signs. As noted above it happened after using the bathroom specifically when he stood up from the toilet. This could be a post micturition near syncopal episode or possibly a vagal episode from straining to move his bowels. - Time Time Spent with patient: 15-24 minutes Medications reviewed and adjusted accordingly: Yes Anticipated Discharge Disposition: Home, Self Care Anticipated Discharge Timeframe: within 72 hours
[2020-04-22] MEDS: METFORMIN HCL 500 MG TABLET PO SCH (17:33)
[2020-04-22] MEDS: ATORVASTATIN CALCIUM 40 MG TABLET PO SCH (21:52)
[2020-04-22] MEDS: LATANOPROST 0.005% OPH SOLN 2.5 ML OS SCH (21:53)
[2020-04-23] MEDS: HEPARIN SOD (PORCINE) 5,000 UNIT/ML 1 ML VIAL SUBCUT SCH ×2 (06:25→14:34)
[2020-04-23 06:42] LABS: ANION GAP 11 (5-19); BLOOD UREA NITROGEN 11 mg/dL (7-20); CALCIUM 8.4 mg/dL (8.4-10.2); CARBON DIOXIDE 19 mmol/L (22-30); CHLORIDE 105 mmol/L (98-107); GLUCOSE 202 mg/dL (75-110); POTASSIUM 3.6 mmol/L (3.6-5.0)
[2020-04-23] MEDS: INSULIN NPH (ISOPHANE), HUMAN 100 UNIT/ML 3 ML SUBCUT SCH ×2 (08:03→16:24)
[2020-04-23] MEDS: INSULIN LISPRO 100 UNIT/ML 3 ML VIAL SUBCUT SCH ×3 (08:04→16:25)
[2020-04-23] MEDS: METFORMIN HCL 500 MG TABLET PO SCH ×2 (08:05→16:25)
[2020-04-23] MEDS: GLIMEPIRIDE 1 MG TABLET PO SCH (08:10)
[2020-04-23] MEDS: METOPROLOL SUCCINATE 25 MG TAB.SR.24H PO SCH (09:41)
[2020-04-23] MEDS: POLYETHYLENE GLYCOL 3350 POWDER 17 GM/1 PACKET PO SCH (09:42)
[2020-04-23] MEDS: DOCUSATE SODIUM 100 MG CAPSULE PO SCH (09:42)
[2020-04-23] MEDS ORDERED: SITAGLIPTIN PHOSPHATE 50 MG TABLET PO SCH (10:00)
[2020-04-23] MEDS ORDERED: LISINOPRIL 5 MG TABLET PO SCH (10:00)
[2020-04-23] MEDS ORDERED: PANTOPRAZOLE SODIUM 40 MG TABLET.DR PO SCH (10:00)
--- NOTE | 2020-04-23 16:06 | PDOC DISCHARGE SUMMARY ---
Impression - Admit/DC Date/PCP Admission Date/Primary Care Provider: 04/20/20 18:43 Discharge Date: 04/23/20 - Discharge Diagnosis (1) Diabetic ketoacidosis Is this a current diagnosis for this admission?: Yes (2) Hyperglycemia due to type 2 diabetes mellitus Is this a current diagnosis for this admission?: Yes (3) Abdominal pain Is this a current diagnosis for this admission?: Yes (4) Acid reflux disease Is this a current diagnosis for this admission?: Yes (5) Nausea and vomiting Is this a current diagnosis for this admission?: Yes (6) Hypertension Is this a current diagnosis for this admission?: Yes (7) Constipation Is this a current diagnosis for this admission?: Yes (8) Glaucoma Is this a current diagnosis for this admission?: Yes (9) Morbid obesity with BMI of 40.0-44.9, adult Is this a current diagnosis for this admission?: Yes (10) Engages in nicotine containing substance vaping Is this a current diagnosis for this admission?: Yes (11) Hyperlipidemia, mixed Is this a current diagnosis for this admission?: Yes (12) Near syncope Is this a current diagnosis for this admission?: Yes - Additional Information Resuscitation Status: Full Code Discharge Diet: Cardiac, Diabetic Discharge Activity: Activity As Tolerated, Walk Frequently Referrals: [facility] [NO LOCAL MD] - 05/02/20 1:00 pm (Please be home for a Tele-med call from Dr. Daley.) Prescriptions: Glimepiride 2 mg PO DAILY #30 tablet Metformin HCl [Glucophage 850 mg Tablet] 850 mg PO BIDACBS #60 tab NPH, Human Insulin Isophane [Humulin N (NPH) Insulin 100 unit/mL] 20 unit SUBCUT BIDACBS #10 ml NPH, Human Insulin Isophane [Humulin N (NPH) Insulin 100 Unit/1 ml 3 ml] 20 unit SUBCUT ACBRKFST #10 ml Insulin Regular, Human [Humulin R (Pyxis) Insulin 100 Unit/ml 3Ml] 0 unit SUBCUT .SLD SCALE #10 ml Insulin Regular, Human [Humulin R (Pyxis) Insulin 100 Unit/ml 3Ml] See Protocol SUBCUT ACHS #10 ml Sitagliptin Phosphate [Januvia 50 mg Tablet] 50 mg PO DAILY #30 tablet Atorvastatin Calcium [Lipitor 40 mg Tablet] 40 mg PO QHS #30 tablet Lisinopril [Prinivil 5 mg Tablet] 2.5 mg PO DAILY 30 Days #15 tablet Metoprolol Succinate [Toprol Xl 25 mg Tab.sr] 25 mg PO DAILY #30 tab.sr.24h Home Medications: Latanoprost [Xalatan 0.005% Oph Soln 2.5 ml] 1 drop OU QHS 04/21/20 Atorvastatin Calcium [Lipitor 40 mg Tablet] 40 mg PO QHS #30 tablet 04/23/20 Docusate Sodium [Colace 100 mg Capsule] 100 mg PO BID capsule 04/23/20 Glimepiride 2 mg PO DAILY #30 tablet 04/23/20 Insulin Regular, Human [Humulin R (Pyxis) Insulin 100 Unit/ml 3Ml] 0 unit SUBCUT .SLD SCALE #10 ml 04/23/20 Insulin Regular, Human [Humulin R (Pyxis) Insulin 100 Unit/ml 3Ml] See Protocol SUBCUT ACHS #10 ml 04/23/20 Latanoprost [Xalatan 0.005% Oph Soln 2.5 ml] 1 drop OS QHS bottle 04/23/20 Lisinopril [Prinivil 5 mg Tablet] 2.5 mg PO DAILY 30 Days #15 tablet 04/23/20 Metformin HCl [Glucophage 850 mg Tablet] 850 mg PO BIDACBS #60 tab 04/23/20 Metoprolol Succinate [Toprol Xl 25 mg Tab.sr] 25 mg PO DAILY #30 tab.sr.24h 04/23/20 NPH, Human Insulin Isophane [Humulin N (NPH) Insulin 100 Unit/1 ml 3 ml] 20 unit SUBCUT ACBRKFST #10 ml 04/23/20 NPH, Human Insulin Isophane [Humulin N (NPH) Insulin 100 unit/mL] 20 unit SUBCUT BIDACBS #10 ml 04/23/20 Pantoprazole Sodium [Protonix [address] Tablet] 40 mg PO DAILY tablet.dr 04/23/20 Polyethylene Glycol 3350 [Miralax Powder 17 gm/Packet] 17 gm PO DAILY powd.pack 04/23/20 Sitagliptin Phosphate [Januvia 50 mg Tablet] 50 mg PO DAILY #30 tablet 04/23/20 History of Present Illiness History of Present Illness: SHAHLA HUDDLESTON is a 45 year old male with a limited medical history. He has partial disability from the [employer] because of damage to his right knee. He had a methicillin-resistant staph aureus infection on his left arm approximately 10 years ago. He was recently diagnosed with the possibility of glaucoma in his left eye and he is morbidly obese. There is a family history of diabetes. On April 07 he began to have a stomach ache and heartburn. This lasted for several days and on April 12 he began to have a funny taste in his mouth. Carbonated drinks felt like acid. Water had a metallic taste in food had a metallic taste as well. He tried multiple [id number] treatments without success. Subsequently his heartburn increased and then he began to have mahamed abdominal pain. He also noted frequent urination including nocturia. Increased thirst and sluggishness. Unfortunately he does not have a primary care provider nor does he go to the [place] [facility] and so when it was felt to be significantly worse he in fact presented to the emergency department. On evaluation his CBC is normal but his serum chemistries are abnormal. He is sodium is 138 with a potassium of 4.7. Chloride is 104 and his bicarb is low at 16. Kidneys are normal at BUN 10 and creatinine of 0.69. Unfortunately his glucose was 456. Mr. Huddleston will be admitted to the hospitalist service. The patient will be placed on an insulin infusion. He will get aggressive IV fluids. Will check laboratory studies (basic metabolic panel) every 2 hours initially. Fingersticks will be every 1 hour initially and then decrease as his glucose gets closer to normal. Hospital Course Hospital Course: felt much better when glucose improved. Used a combination of oral meds and insulin. Physical Exam Vital Signs: Temp Pulse Resp BP Pulse Ox 98.1 F 88 24 H 137/78 H 96 04/23/20 10:00 04/23/20 14:00 04/23/20 07:14 04/23/20 07:14 04/23/20 07:14 Intake & Output 04/22/20 04/23/20 04/24/20 06:59 06:59 06:59 Intake Total 4510 3545 480 Output Total 475 1075 200 Balance 4035 2470 280 Weight 125.1 kg General appearance: PRESENT: no acute distress Respiratory exam: PRESENT: clear to auscultation paulette, tachypnea, unlabored. ABSENT: rales, rhonchi, symmetrical, wheezes Cardiovascular exam: PRESENT: RRR, +S1, +S2 GI/Abdominal exam: PRESENT: normal bowel sounds, soft. ABSENT: tenderness Results Laboratory Results: WBC 7.8 10^3/uL (4.0-10.5) 04/22/20 04:12 RBC 4.61 10^6/uL (4.35-5.55) 04/22/20 04:12 Hgb 13.7 g/dL (13.5-17.0) 04/22/20 04:12 Hct 41.3 % (37.9-51.0) 04/22/20 04:12 MCV 90 fl (80-97) 04/22/20 04:12 MCH 29.8 pg (27.0-33.4) 04/22/20 04:12 MCHC 33.3 g/dL (32.0-36.0) 04/22/20 04:12 RDW 14.3 % (11.5-14.0) H 04/22/20 04:12 Plt Count 180 10^3/uL (150-450) 04/22/20 04:12 Lymph % (Auto) 42.9 % (13-45) 04/22/20 04:12 [place] % (Auto) 6.5 % (3-13) 04/22/20 04:12 Eos % (Auto) 2.4 % (0-6) 04/22/20 04:12 Baso % (Auto) 1.2 % (0-2) 04/22/20 04:12 Absolute Neuts (auto) 3.7 10^3/uL (1.7-8.2) 04/22/20 04:12 Absolute Lymphs (auto) 3.3 10^3/uL (0.5-4.7) 04/22/20 04:12 Absolute Monos (auto) 0.5 10^3/uL (0.1-1.4) 04/22/20 04:12 Absolute Eos (auto) 0.2 10^3/uL (0.0-0.6) 04/22/20 04:12 Absolute Basos (auto) 0.1 10^3/uL (0.0-0.2) 04/22/20 04:12 Seg Neutrophils % 47.0 % (42-78) 04/22/20 04:12 PT 12.6 SEC (11.4-15.4) 04/20/20 17:30 INR 0.92 04/20/20 17:30 Sodium 135.4 mmol/L (137-145) L 04/23/20 05:07 Potassium 3.6 mmol/L (3.6-5.0) 04/23/20 05:07 Chloride 105 mmol/L (98-107) 04/23/20 05:07 Carbon Dioxide 19 mmol/L (22-30) L 04/23/20 05:07 Anion Gap 11 (5-19) 04/23/20 05:07 BUN 11 mg/dL (7-20) 04/23/20 05:07 Creatinine 0.71 mg/dL (0.52-1.25) 04/23/20 05:07 Est GFR ( Amer) > 60 (>60) 04/23/20 05:07 Est GFR (MDRD) Non-Af > 60 (>60) 04/23/20 05:07 Glucose 202 mg/dL (75-110) H 04/23/20 05:07 POC Glucose 208 mg/dL (70-110) H 04/23/20 11:33 Hemoglobin A1c % 13.8 % (4.7-6.0) H 04/20/20 17:30 C-Peptide 1.3 ng/mL (1.1-4.4) 04/21/20 06:55 Calcium 8.4 mg/dL (8.4-10.2) 04/23/20 05:07 Magnesium 2.3 mg/dL (1.6-2.3) 04/22/20 04:12 Total Bilirubin 0.6 mg/dL (0.2-1.3) 04/20/20 17:30 Direct Bilirubin 0.1 mg/dL (0.0-0.4) 04/20/20 17:30 Neonat Total Bilirubin Not Reportable 04/20/20 17:30 Neonat Direct Bilirubin Not Reportable 04/20/20 17:30 Neonat Indirect Bili Not Reportable 04/20/20 17:30 AST 34 U/L (17-59) 04/20/20 17:30 ALT 50 U/L (<50) 04/20/20 17:30 Alkaline Phosphatase 168 U/L (38-126) H 04/20/20 17:30 Total Protein 7.9 g/dL (6.3-8.2) 04/20/20 17:30 Albumin 4.5 g/dL (3.5-5.0) 04/20/20 17:30 Triglycerides 664 mg/dL (<150) H 04/21/20 06:55 Cholesterol 287.88 mg/dL (0-200) H 04/21/20 06:55 LDL Cholesterol Direct 153 mg/dL (<100) H 04/21/20 06:55 VLDL Cholesterol, Calc UNABLE TO CALCULATE 04/21/20 06:55 HDL Cholesterol 34 mg/dL (>40) L 04/21/20 06:55 Lipase 159.5 U/L (23-300) 04/20/20 17:30 TSH 1.08 uIU/mL (0.47-4.68) 04/20/20 17:30 Free T4 1.25 ng/dL (0.78-2.19) 04/20/20 17:30 Urine Color STRAW 04/20/20 17:00 Urine Appearance CLEAR 04/20/20 17:00 Urine pH 5.0 (5.0-9.0) 04/20/20 17:00 Ur Specific [place] 1.033 04/20/20 17:00 Urine Protein 30 mg/dL (NEGATIVE) H 04/20/20 17:00 Urine Glucose (UA) >=500 mg/dL (NEGATIVE) H 04/20/20 17:00 Urine Ketones 80 mg/dL (NEGATIVE) H 04/20/20 17:00 Urine Blood NEGATIVE (NEGATIVE) 04/20/20 17:00 Urine Nitrite NEGATIVE (NEGATIVE) 04/20/20 17:00 Urine Bilirubin NEGATIVE (NEGATIVE) 04/20/20 17:00 Urine Urobilinogen NEGATIVE mg/dL (<2.0) 04/20/20 17:00 Ur Leukocyte Esterase NEGATIVE (NEGATIVE) 04/20/20 17:00 Urine WBC (Auto) 1 /HPF 04/20/20 17:00 Urine RBC (Auto) 1 /HPF 04/20/20 17:00 Squamous Epi Cells Auto <1 /HPF 04/20/20 17:00 Urine Mucus (Auto) RARE /LPF 04/20/20 17:00 Urine Ascorbic Acid NEGATIVE (NEGATIVE) 04/20/20 17:00 Impressions: Chest X-Ray 04/20/20 00:00 IMPRESSION: No acute cardiopulmonary process copyright 2011 [employer]- All Rights Reserved Chest X-Ray 04/20/20 16:46 IMPRESSION: NO ACUTE RADIOGRAPHIC FINDING IN THE CHEST. Plan Health Concerns: no health coverage in a complex illness inc diabetes as well as marked hypertriglyceridemia and hypercholesterolemia as well as hypertension Plan of Treatment: establish with primary care and comply with medication regimen Goals: establish control of diabetes, lipids. blood pressure and lose weight Time Spent: Greater than 30 Minutes Stroke Is this a Stroke Patient?: No Acute Heart Failure - Is this a Heart Failure Patient?: No
[2020-04-23 16:38] VITALS: BP 163/98
== END 2020-04-23 17:30 | disposition home or self-care (01) | DRG 638 ==
LOC: ER 16:27 → EH 18:43 → 3W 20:15
PROVIDERS: ADMIT Hospitalist; ATTEND Hospitalist
DX: E11.10 Type 2 diabetes mellitus with ketoacidosis without coma (principal); Z68.41 Body mass index [BMI] 40.0-44.9, adult; I10 Essential (primary) hypertension; E66.01 Morbid (severe) obesity due to excess calories; K21.9 Gastro-esophageal reflux disease without esophagitis; K59.00 Constipation, unspecified; H40.9 Unspecified glaucoma; E78.2 Mixed hyperlipidemia; E78.00 Pure hypercholesterolemia, unspecified; E78.1 Pure hyperglyceridemia; F17.290 Nicotine dependence, other tobacco product, uncomplicated; Z79.4 Long term (current) use of insulin; Z86.14 Personal history of Methicillin resistant Staphylococcus aureus infection; Z83.3 Family history of diabetes mellitus; Z82.49 Family history of ischemic heart disease and other diseases of the circulatory system
CPT/HCPCS: 36415; 71045; 80048; 80053; 80061; 81001; 82010; 82962; 83036; 83690; 83735; 84439; 84443; 84681; 85025; 85610; 99285; J1644; J1815; J3490; J7030; J7042